=== PATIENT | male | born 1945 | race Caucasian/White ===

== ENCOUNTER 2017-10-23 12:03 | Day surgery (SDC) | payer MEDICARE, OTHER ==
--- NOTE | 2017-10-23 14:52 | Operative Note ---
Colonoscopy ([facility]) Procedure date: 10/23/17 Date of : 47 Procedure:Colonoscopy Colonoscopy with cold snare polypectomy Indications: Mr. Jose is a 72-year-old gentleman who is here for follow-up screening/ surveillance colonoscopy. The patient had a normal colonoscopy in 2001. His colonoscopy in March 2007 revealed a single polyp (hyperplastic polyp) which was removed. His last colonoscopy in August 2012 revealed a single polyp (small serrated adenoma 1) which was removed. He did have hemorrhoid banding at that time. His father had colon cancer in his mid 70s. The patient rarely has rectal bleeding presently. He does take a stool softener. He reports no abdominal pain, weight loss or change in bowel habits. Performing Provider: Deshaun Howard MD Referrring Provider: Kirk Ruiz M.D. Sedation: Fentanyl 200 mg IV/Versed 10 mg IV Procedure: Prior to the procedure, a history and physical exam was performed, and patient medications and allergies were reviewed. The risks and benefits of the procedure and the sedation options and risks were discussed with the patient. All questions were answered and informed consent was obtained. Patient identification and proposed procedure were verified by the physician and the nurse. The patient was placed in a left lateral decubitus position. Throughout the procedure, the patient's blood pressure, pulse, and oxygen saturations were monitored continuously. Findings: On digital rectal examination there was normal rectal tone. There were no external hemorrhoids. The prostate was 2-3+, full, firm but symmetric and without nodules. The colonoscope was introduced through the anal canal to the rectum and advanced to the cecum. The ileocecal valve and appendiceal orifice were identified. The scope was advanced a short distance into the ileum which appeared grossly normal. The scope was then withdrawn into the colon. There were 4 colon polyps identified in the ascending 2 and ascending 2. These ranged in size from 4-6 mm and were all removed via cold snare polypectomy. There were scattered diverticuli throughout the descending and sigmoid colon (LEFT colon). The rectum itself was normal. Upon retroflexion within the rectum there were grade 1 internal hemorrhoids. Impressions: 1. Diminutive colonic polyps 4 2. Left-sided diverticulosis 3. Grade 1 internal hemorrhoids Recommendations: I will follow up the polyp pathology and recommend repeat colonoscopy again in 5 years based upon the polyp histology. I would encourage fiber supplementation on a long-term daily maintenance basis. Complications: None EBL (ml): 0 at 6971
[2017-10-23 18:14] VITALS: BP 149/74
== END 2017-10-23 17:50 | disposition home or self-care (01) ==
LOC: SDC 12:03
PROVIDERS: Internal Medicine Gastroenterology
PROC: 0DBL8ZX Excision of Transverse Colon, Via Natural or Artificial Opening Endoscopic, Diagnostic (ICD-10-PCS; 2017-10-23)
PROC: 0DBK8ZX Excision of Ascending Colon, Via Natural or Artificial Opening Endoscopic, Diagnostic (ICD-10-PCS; principal; 2017-10-23 13:00)
DX: Z12.11 Encounter for screening for malignant neoplasm of colon (principal); Z86.010 Personal history of colon polyps; Z80.0 Family history of malignant neoplasm of digestive organs; D12.2 Benign neoplasm of ascending colon; D12.3 Benign neoplasm of transverse colon; K57.30 Diverticulosis of large intestine without perforation or abscess without bleeding; K64.0 First degree hemorrhoids; E11.9 Type 2 diabetes mellitus without complications
CPT/HCPCS: J2405